=== PATIENT | female | born 1970 | race Caucasian/White ===

== ENCOUNTER 2020-10-31 20:01 | Emergency (ER) | payer BC, OTHER ==
[~2020-10-31 20:01] MED LIST: AZIT250T PO; FLUT16SP NS; HYDR-3164 PO; IBUP-1027 PO; LEVO750T31 PO; PRED20TA PO; SERT100T PO; SPIR100T4 PO; TRAZ300T2 PO
--- NOTE | 2020-10-31 20:29 | PHYS DOC ---
Past Medical History Past Medical History: Depression, Other Additional Past Medical Histor: Insomnia Past Surgical History: Hysterectomy Additional Past Surgical Histo: "uterine up-lift", fissure repair Smoking Status: Current Every Day Smoker Alcohol Use: None Drug Use: None General Adult EDM: Chief Complaint: DENTAL PROBLEM HPI: HPI: Patient is a 50 year old female with history of depression who presents to the ED today complaining of a dental abscess on the left upper gum that she has had for 3 weeks. Patient states she has been on 3 rounds of antibiotics. She states she took 2 rounds of clindamycin [id number] with no improvement. She states she saw her dentist yesterday who put her on Z-Manuelito and hydrocodone with no improvement. She states she has an appointment with the dentist to have an extraction of the affected tooth on November 14 2020 but currently cannot stand the pain. Patient denies any fever, nausea or vomiting. Review of Systems: Review of Systems: Constitutional: Denies fever or chills. [] Eyes: Denies change in visual acuity. [] HENT: Reports dental abscess. Denies nasal congestion or sore throat. [] Respiratory: Denies cough or shortness of breath. [] Cardiovascular: Denies chest pain or edema. [] GI: Denies abdominal pain, nausea, vomiting, bloody stools or diarrhea. [] : Denies dysuria. [] Musculoskeletal: Denies back pain or joint pain. [] Integument: Denies rash. [] Neurologic: Denies headache, focal weakness or sensory changes. [] Psychiatric: Denies depression or anxiety. [] Heart Score: C/O Chest Pain: N/A Risk Factors: Risk Factors: DM, Current or recent (<one month) smoker, HTN, HLP, family history of CAD, obesity. Risk Scores: Score 0 - 3: 2.5% MACE over next 6 weeks - Discharge Home Score 4 - 6: 20.3% MACE over next 6 weeks - Admit for Clinical Observation Score 7 - 10: 72.7% MACE over next 6 weeks - Early Invasive Strategies Current Medications: Current Medications Medications (Trade) Dose Ordered Sig/Sam Start Time Stop Time Status Last Admin Dose Admin Morphine Sulfate (Morphine Sulfate) 4 mg PRN Q15MIN PRN 10/31/20 20:30 11/01/20 20:29 UNV Piperacillin Sod/ Tazobactam Sod 4.5 gm/Sodium Chloride 100 ml @ 200 mls/hr 1X ONCE 10/31/20 20:30 10/31/20 20:59 UNV Sodium Chloride 1,650 ml @ 1,650 mls/hr Q1H 10/31/20 20:30 UNV Vancomycin HCl (Vanco Per Pharmacy) 1 each 1X ONCE 10/31/20 20:30 10/31/20 20:31 UNV Allergies: Allergies: Allergies Coded Allergies Type Severity Reaction Last Updated Verified amoxicillin Allergy Intermediate hives 05/16/16 No Physical Exam: PE: Constitutional: Well developed, well nourished, no acute distress, non-toxic appearance. [] HENT: Normocephalic, atraumatic, bilateral external ears normal, oropharynx moist, no oral exudates, nose normal. [] Left upper gum along tooth #11 through 13 with swelling consistent of dental abscess on the gum and inner cheek, no drainage. Eyes: PERRLA, EOMI, conjunctiva normal, no discharge. [] Neck: Normal range of motion, no tenderness, supple, no stridor. [] Cardiovascular:Heart rate regular rhythm, no murmur [] Lungs & Thorax: Bilateral breath sounds clear to auscultation [] Abdomen: Bowel sounds normal, soft, no tenderness, no masses, no pulsatile masses. [] Skin: Warm, dry, no erythema, no rash. [] Back: No tenderness, no CVA tenderness. [] Extremities: No tenderness, no cyanosis, no clubbing, ROM intact, no edema. [] Neurologic: Alert and oriented X 3, normal motor function, normal sensory function, no focal deficits noted. [] Psychologic: Affect normal, judgement normal, mood normal. [] EKG: EKG: [] Radiology/Procedures: Radiology/Procedures: []PROCEDURE: CT MAXILLOFACIAL W/CONTRAST Exam: CT maxillofacial with contrast INDICATION: Dental abscess, left-sided TECHNIQUE: Sequential axial images through the face obtained following the administration of 70 mL of Isovue-370 IV contrast. Sagittal and coronal reformatted images were reconstructed from the axial data and reviewed. Exposure: One or more of the following in the visualized dose reduction techniques were utilized for this examination: 1. Automated exposure control 2. Adjustment of the MA and/or KV according to patient size 3. Use of iterative of reconstructive technique Comparisons: None FINDINGS: Visualized intracranial structures are unremarkable. Globes and orbital contents are normal. Visualized portions of paranasal sinuses and mastoid air cells are well- pneumatized. There is periapical lucency and cortical breakthrough noted at a left maxillary premolar. There is a 6 mm adjacent periosteal abscess with adjacent enhancement inflammation. Stranding and edema in the subcutaneous fat overlying the left cheek. Several prominent and mildly enlarged right upper cervical lymph nodes noted in the submental region. IMPRESSION: 1. Periosteal abscess measuring 6 mm adjacent to the left premolar which d emonstrates periodontal disease. 2. Inflammatory changes in the left face with stranding the subcutaneous fat of the left cheek and mildly enlarged submental lymph nodes. This is likely reactive to the above process. Electronically signed by: Faina Abdul MD (10/31/2020 10:16 PM) [facility] DICTATED and SIGNED BY: FAINA ABDUL MD DATE: 10/31/20 [id number] 0 Course & Med Decision Making: Course & Med Decision Making Pertinent Labs and Imaging studies reviewed. (See chart for details) This is a 50-year-old female patient presenting to the ED today complaining of a dental abscess she has had for 3 weeks. She has done 2 rounds of clindamycin with no improvement, she was put on Z-Manuelito and hydrocodone yesterday and she states is not improving her symptoms. Vitals are stable, patient is afebrile. CBC with a WBC of 15.3, CMP with no acute findings. CT of maxillofacial noted for Pperiosteal abscess measuring 6 mm adjacent to the left premolar which demonstrates periodontal disease. Inflammatory changes in the left face with stranding the subcutaneous fat of the left cheek and mildly enlarged submental lymph nodes. This is likely reactive Patient was given vancomycin and Zosyn in the ED. Spoke to Dr. Ward oral surgeon, he requested patient to follow-up with his office tomorrow morning. Information provided to patient Sarah Disclaimer: Sarah Disclaimer: This electronic medical record was generated, in whole or in part, using a voice recognition dictation system. Departure Departure Impression: Primary Impression: Dental abscess Additional Impression: Periodontal disease Disposition: HOME / SELF CARE / HOMELESS Condition: STABLE Referrals: CARMEN SHANKS (PCP) CARD,SINDY S DMD Please contact his office tomorrow morning right after 7 AM. The doctor would like to see you before 12 PM Patient Instructions: Dental Abscess Additional Instructions: You have a periodontal abscess, please contact the provided oral surgeon first thing tomorrow morning and follow-up. He would like you to call the office right after 7 AM. Scripts Amoxicillin (AMOXICILLIN) 875 Mg Tablet 1 TAB PO BID, #20 TAB Prov: FABY MENDOZA APRN 10/31/20 FABY MENDOZA APRN October 31, 2020 20:29
[2020-10-31] MEDS ORDERED: VANCOMYCIN PER PHARMACY MC ONE (20:30)
[2020-10-31] MEDS ORDERED: IV NORMAL SALINE 1000ML BAG 1,000 ML IV SCH (20:30)
[2020-10-31 20:41] LABS: BASO # 0.1 x10^3/uL (0.0-0.2); BASO % 1 % (0-3); EOS # 0.4 x10^3/uL (0.0-0.7); EOS % 3 % (0-3); HEMATOCRIT 42.5 % (36.0-47.0); HEMOGLOBIN 14.9 g/dL (12.0-15.5); LYMPH # 4.8 x10^3/uL (1.0-4.8); LYMPH % 31 % (24-48); MEAN CORPUSCULAR HEMOGLOBIN 32 pg (25-35); MEAN CORPUSCULAR HGB CONC 35 g/dL (31-37); MEAN CORPUSCULAR VOLUME 90 fL (79-100); MONO # 1.4 x10^3/uL (0.0-1.1); MONO % 9 % (0-9); NEUT # 8.6 x10^3/uL (1.8-7.7); NEUT % 56 % (31-73); PLATELET COUNT 257 x10^3/uL (140-400); RED BLOOD COUNT 4.72 x10^6/uL (3.50-5.40); RED CELL DISTRIBUTION WIDTH 12.6 % (11.5-14.5); WHITE BLOOD COUNT 15.3 x10^3/uL (4.0-11.0)
[2020-10-31 20:52] LABS: CALCIUM 8.8 mg/dL (8.5-10.1); CREATININE 0.8 mg/dL (0.6-1.0); GFR 75.3
[2020-10-31 20:57] LABS: ALBUMIN 4.3 g/dL (3.4-5.0); ALBUMIN/GLOBULIN RATIO 1.5 (1.0-1.7); TOTAL BILIRUBIN 0.6 mg/dL (0.2-1.0); TOTAL PROTEIN 7.2 g/dL (6.4-8.2)
[2020-10-31] MEDS: MORPHINE SULFATE 4 MG/ML VIAL. IV/SQ PRN ×2 (20:57→22:19)
[2020-10-31] MEDS ORDERED: VANCOMYCIN 2 GM in IV NORMAL SALINE 500ML BAG 500 ML IV ONE (21:00)
[2020-10-31] MEDS ORDERED: IOHEXOL 300 MG/ML 100ML VIAL. IV ONE (21:00)
[2020-10-31] MEDS ORDERED: CONTRAST GIVEN. MC PRN (21:00)
[2020-10-31] MEDS ORDERED: PIPERACILLIN/TAZOBACTAM 4.5 GM in IV NORMAL SALINE 100ML 100 ML IV ONE (21:00)
--- NOTE | 2020-10-31 22:18 | RAD ---
Exam: CT maxillofacial with contrast INDICATION: Dental abscess, left-sided TECHNIQUE: Sequential axial images through the face obtained following the administration of 70 mL of Isovue-370 IV contrast. Sagittal and coronal reformatted images were reconstructed from the axial da ta and reviewed. Exposure: One or more of the following in the visualized dose reduction techniques were utilized for this examination: 1. Automated exposure control 2. Adjustment of the MA and/or KV according to patient size 3. Use of iterative of reconstructive technique Comparisons: None FINDINGS: Visualized intracranial structures are unremarkable. Globes and orbital contents are normal. Visualized portions of paranasal sinuses and mastoid air cells are well-pneumatized. There is periapical lucency and cortical breakthrough noted at a left maxillary premolar. There is a 6 mm adjacent periosteal abscess with adjacent enhancement inflammation. Stranding and edema in the subcutaneous fat overlying the left cheek. Several prominent and mildly en larged right upper cervical lymph nodes noted in the submental region. IMPRESSION: 1. Periosteal abscess measuring 6 mm adjacent to the left premolar which demonstrates periodontal di sease. 2. Inflammatory changes in the left face with stranding the subcutaneous fat of the left cheek and m ildly enlarged submental lymph nodes. This is likely reactive to the above process. Electronically signed by: Faina Serrano MD (10/31/2020 10:16 PM) [facility]
[2020-10-31] MEDS ORDERED: AMOX875T PO (22:52)
[2020-10-31 23:47] VITALS: BP 207/93
== END 2020-10-31 23:50 | disposition home or self-care (01) ==
LOC: ER 20:01
DX: K04.7 Periapical abscess without sinus (principal); K05.6 Periodontal disease, unspecified; F32.9 Major depressive disorder, single episode, unspecified; F17.200 Nicotine dependence, unspecified, uncomplicated; Z88.1 Allergy status to other antibiotic agents
CPT/HCPCS: 36415; 70487; 80053; 83605; 84145; 85025; 87040; 96365; 96366; 96367; 96374; 96375; 99285; J2270; J2543; J3370; J7030; J7040; Q9967